=== PATIENT | male | born 1970 | race Caucasian/White ===

== ENCOUNTER 2018-07-18 09:41 | Emergency (ER) | payer BC ==
[2018-07-18 10:17] VITALS: BP 109/72
--- NOTE | 2018-07-18 10:51 | UC ---
Epistaxis Nasal HPI - HPI Summary HPI Summary: patient has had a red swollen nose for the past two days, swelling is now up around the bridge of the nose. - History of Current Complaint Chief Complaint: FANNYkin Stated Complaint: NOSE INFECTION Time Seen by Provider: 07/18/18 10:39 Hx Obtained From: Patient Onset/Duration: Sudden Onset, Lasting Days Timing: Constant Severity Initially: Moderate Severity Currently: Moderate Pain Intensity: 5 Alleviating Factor(s): Nothing - Allergies/Home Medications Allergies/Adverse Reactions: Allergies Allergy/AdvReac Type Severity Reaction Status Date / Time No Known Allergies Allergy Verified 07/18/18 10:16 Home Medications: Home Medications Meclizine TAB* [Antivert 12.5 TAB*] 25 mg PO TID 07/18/18 [History Confirmed 10/04] PMH/Surg Hx/FS Hx/Imm Hx Previously Healthy: Yes - Surgical History Surgical History: None - Family History Known Family History: Positive: Hypertension - Social History Alcohol Use: None Substance Use Type: None Smoking Status (MU): Never Smoked Tobacco - Immunization History Most Recent Tetanus Shot: OVER 5 YEARS AGO Review of Systems All Other Systems Reviewed And Are Negative: Yes Constitutional: Positive: Negative Skin: Positive: Other - erythema Eyes: Positive: Negative ENT: Positive: Negative Respiratory: Positive: Negative Cardiovascular: Positive: Negative Gastrointestinal: Positive: Negative Genitourinary: Positive: Negative Motor: Positive: Negative Neurovascular: Positive: Negative Musculoskeletal: Positive: Negative Neurological: Positive: Negative Psychological: Positive: Negative Is Patient Immunocompromised?: No Physical Exam Triage Information Reviewed: Yes Appearance: No Pain Distress, Well-Nourished, Pain Distress Vital Signs: Initial Vital Signs Temp 97.0 F 07/18/18 10:13 Pulse 78 07/18/18 10:13 Resp 15 07/18/18 10:13 BP 109/72 07/18/18 10:13 Pulse Ox 99 07/18/18 10:13 Vital Signs Reviewed: Yes Eye Exam: Normal ENT: Positive: Pharyngeal erythema, Nasal drainage, Sinus tenderness Dental Exam: Normal Neck exam: Normal Respiratory Exam: Normal Cardiovascular Exam: Normal Abdominal Exam: Normal Musculoskeletal Exam: Normal Neurological Exam: Normal Psychological Exam: Normal Skin: Positive: Other - erythema of the nose and swollen adneoids noted Epistaxis Nasal Course/Dx - Course Course Of Treatment: hx obtained, exam performed ,meds reviewed, treaed for cellulitis - Differential Dx/Diagnosis Differential Diagnosis/HQI/PQRI: Other - cellulitis Provider Diagnosis: Cellulitis of external nose Discharge - Sign-Out/Discharge Documenting (check all that apply): Patient Departure All imaging exams completed and their final reports reviewed: No Studies - Discharge Plan Condition: Stable Disposition: HOME Prescriptions: Sulfamethox/Trimethoprim DS* [Bactrim DS 800/160 TAB*] 1 tab PO BID #20 tab Patient Education Materials: Cellulitis (ED) Referrals: Nory Gallardo MD [Primary Care Provider] - Additional Instructions: 1. take the medication as prescribed. 2. Warm compresses to the nose. 3. Ibuprofen for pain and swelling 4. if not improving in the next few day please follow up. - Billing Disposition and Condition Condition: STABLE Disposition: Home
== END 2018-07-18 10:51 | disposition home or self-care (01) ==
LOC: UCCORT 09:41
DX: J34.0 Abscess, furuncle and carbuncle of nose (principal)
CPT/HCPCS: 99202; G0463